=== PATIENT | male | born 1980 | race Caucasian/White ===

== ENCOUNTER 2020-05-02 16:48 | Outpatient (RCR) | payer MEDICARE, SELFPAY ==
[2019-10-02 11:43] VITALS: BMI 28.0
[2020-05-02] MEDS: COVID-19 VACC, MRNA(PFIZER)/PF 30 MCG/0.3 ML SYRINGE IM (15:10)
[2020-05-23] MEDS: COVID-19 VACC, MRNA(PFIZER)/PF 30 MCG/0.3 ML SYRINGE IM (14:48)
== END 2020-05-02 23:59 ==
LOC: IMMUN 16:48
PROVIDERS: Visit Provider Family Medicine
DX: Z23 Encounter for immunization (principal)
CPT/HCPCS: 0001A; 0002A; 91300

== ENCOUNTER → 2020-06-06 13:26 | Outpatient (CLI) | payer MEDICARE, SELFPAY ==
[2020-06-06 13:06] VITALS: BMI 28.8
[2020-06-06 15:47] LABS: T4 Free Direct 0.84 ng/dL (0.76-1.46)
== END ==
PROVIDERS: Referring Provider Internal Medicine Endocrinology, Diabetes & Metabolism; Visit Provider Internal Medicine Endocrinology, Diabetes & Metabolism
DX: E11.9 Type 2 diabetes mellitus without complications (principal); E03.8 Other specified hypothyroidism; E06.3 Autoimmune thyroiditis
CPT/HCPCS: 36415; 84439; 84443

== ENCOUNTER → 2020-12-05 13:17 | Outpatient (CLI) | payer MEDICARE, SELFPAY ==
[2020-12-05 15:21] LABS: T4 Free Direct 0.89 ng/dL (0.76-1.46); Thyroid Stim Hormone (TSH) 1.77 uIU/mL (0.358-3.74)
== END ==
PROVIDERS: Referring Provider Internal Medicine Endocrinology, Diabetes & Metabolism; Visit Provider Internal Medicine Endocrinology, Diabetes & Metabolism
DX: E03.8 Other specified hypothyroidism (principal); E06.3 Autoimmune thyroiditis; E11.9 Type 2 diabetes mellitus without complications; Q90.9 Down syndrome, unspecified
CPT/HCPCS: 36415; 84439; 84443